=== PATIENT | male | born 1960 | race Caucasian/White ===

== ENCOUNTER 2016-10-04 05:37 | Emergency (ER) | payer OTHER ==
[~2016-10-04] VITALS: Ht 185.4 cm; Wt 101.8 kg
[2016-10-04] MEDS ORDERED: OXYMETAZOLINE NASAL SPRAY 0.05%, 15ML NAS ONE (06:00)
[2016-10-04] MEDS ORDERED: OXYMETAZOLINE NASAL SPRAY 0.05%, 15ML ONE (06:00)
[2016-10-04] MEDS ORDERED: LIDOCAINE 1%-EPI 1:100K, 20ML SQ ONE (06:00)
[2016-10-04] MEDS ORDERED: LIDOCAINE 1%, 20ML ONE (06:14)
[2016-10-04] MEDS ORDERED: SILVER NITRATE STICK TP ONE ×2 (06:14→06:30)
[2016-10-04 08:32] VITALS: BP 110/86
== END 2016-10-04 08:36 | disposition home or self-care (01) ==
LOC: ED 06:16
DX: R04.0 Epistaxis (principal)
CPT/HCPCS: 30901; 99283